=== PATIENT | female | born 1950 | race African-American/Black ===

== ENCOUNTER → 2016-07-27 | Outpatient (CLI) | payer OTHER ==
[~2016-07-27] MED LIST: ALBU8I INH; AMLO5 PO; CALC1TAB87 PO; CALCCHW25 PO; CEPH250C PO; CLAR10CA3 PO; FLON0.053; FLUT1INH INH; FLUT1SPR5 EACH NARE; GABA100C4 PO; LIPI10TA PO; METO25CR PO; METO25TA3 PO; MONT10TA4 PO; MYCO180 PO; MYCO360 PO; NEOR25 PO; OXYC-392 PO; PROBCAP4 PO; PROT40TA PO; RANI150T PO; VENTAER INH; WALKER WHEELS/F1 MIS
--- NOTE | 2016-07-27 16:28 | RADRPT ---
EXAM DATE/TIME: 07/27/2016 00:00 [facility] COMPARISON: No previous studies available for comparison. OUTSIDE STUDY REVIEWED: CT abdomen and pelvis without intravenous contrast performed on 07/18/2016. INDICATIONS : CT Guided Biopsy of Liver Nodules FINDINGS: The noncontrast abdomen and pelvis CT documents a portion of the liver protruding superiorly from the dome into a eventration or hernia of the diaphragm. No contrast was administered on the examination and it could represent normal liver tissue. The patient is post liver transplant. Based on the locati on is not easily amenable to biopsy and may be impossible to biopsy without traversing the lung. CONCLUSION: Since the above-described liver finding would be extremely difficult to biopsy without traversing the lung and given that the finding may represent normal liver parenchyma that has simply protruded into a eventration or hernia of the diaphragm, I am recommending performing a liver MRI with and without intravenous contrast for further evaluation. If it demonstrates an appearance consistent with normal liver tissue then no biopsy will be needed. If there is clinical concern for a metastatic lesion and the patient cannot undergo MRI with intravenous contrast for some reason then I would consider PET CT imaging. Roberto Gabriel MD on July 27, 2016 at 16:22 Board Certified Radiologist. This report was verified electronically.
== END ==
LOC: HRAD 14:18
PROVIDERS: ATTEND Obstetrics & Gynecology
DX: K76.89 Other specified diseases of liver (principal)
CPT/HCPCS: 76140

== ENCOUNTER 2016-08-16 11:17 | Inpatient (IN) | payer OTHER, MEDICARE ==
[~2016-08-16] VITALS: Ht 166.4 cm; Wt 116.5 kg
[2016-08-16] MEDS ORDERED: VENTAER INH (15:05)
[2016-08-16] MEDS ORDERED: NEOR25 PO (15:05)
[2016-08-16] MEDS ORDERED: AMLO5 PO (15:05)
[2016-08-16] MEDS ORDERED: CLAR10CA3 PO (15:05)
[2016-08-16] MEDS ORDERED: GABA100C4 PO (15:05)
[2016-08-16] MEDS ORDERED: FLUT1SPR5 EACH NARE (15:05)
[2016-08-16] MEDS ORDERED: CALC1TAB87 PO (15:05)
[2016-08-16] MEDS ORDERED: RANI150T PO (15:05)
[2016-08-16] MEDS ORDERED: LIPI10TA PO (15:05)
[2016-08-16] MEDS ORDERED: METO25TA3 PO (15:05)
[2016-08-16] MEDS ORDERED: MYCO180 PO (15:05)
[2016-08-16] MEDS ORDERED: MONT10TA4 PO (15:05)
[2016-08-16] MEDS ORDERED: FLUT1INH INH (15:05)
[2016-08-16] MEDS ORDERED: PROT40TA PO (15:05)
[2016-08-28] MEDS ORDERED: INSULIN HUMAN REGULAR 1,000 UNITS/10 ML VIAL SQ PRN (06:00)
[2016-08-28] MEDS ORDERED: POVIDONE IODINE 5% (ANTISEPSIS KIT) 4 APPLICATIONS EACH NARE PRN (06:00)
[2016-08-28] MEDS ORDERED: LACTATED RINGER'S 1000 ML IV PRN (06:00)
[2016-08-28] MEDS ORDERED: METOPROLOL TARTRATE 25 MG TAB PO PRN (06:00)
[2016-08-28] MEDS ORDERED: SODIUM CHLORID 0.9% 500 ML IV PRN (06:00)
[2016-08-28] MEDS ORDERED: ceFAZolin 2 GM PREMIX 50 ML IV SCH (06:00)
[2016-08-28] MEDS ORDERED: CHLORHEXIDINE GLUCONATE 2 % 1 PACK (2 CLOTHS) TOPICAL PRN (06:00)
[2016-08-28 06:12] VITALS: BP 134/91; PULSE 103; RESP 16; TEMP 98.8; O2SAT 96
[2016-08-28] MEDS: GELFOAM SIZE 100 ONE ×2 (06:37→07:57)
[2016-08-28] MEDS: THROMBIN (TOPICAL) 5,000 UNIT VIAL ONE ×2 (06:37→07:57)
[2016-08-28] MEDS ORDERED: FAMOTIDINE 20 MG/2 ML VIAL ONE (07:01)
[2016-08-28] MEDS ORDERED: ACETAMINOPHEN 1000 MG/100 ML VIAL IV ONE (07:01)
[2016-08-28] MEDS ORDERED: MIDAZOLAM HCL 2 MG/2 ML VIAL ONE (07:02)
[2016-08-28] MEDS ORDERED: fentaNYL CITRATE 250 MCG/5 ML AMP ONE (07:02)
[2016-08-28] MEDS ORDERED: HEPARIN SODIUM - SQ 10,000 UNITS/ML VIAL SQ SCH (07:30)
[2016-08-28] MEDS ORDERED: diphenhydrAMINE HCL 25 MG CAP PO PRN (10:45)
[2016-08-28] MEDS ORDERED: LORazepam 0.5 MG TAB PO PRN (10:45)
[2016-08-28] MEDS ORDERED: SODIUM CHLORIDE 0.9% FLUSH 10 ML FLUSH IV FLUSH PRN (10:45)
[2016-08-28] MEDS ORDERED: oxyCODONE/ACETAMINOPHEN 5 MG/325 MG TAB PO PRN ×2 (10:45)
[2016-08-28] MEDS ORDERED: NALOXONE HCL 0.4 MG/ML AMP IV PRN (10:45)
[2016-08-28] MEDS ORDERED: ONDANSETRON HCL 4 MG/2 ML VIAL IVP PRN (10:45)
[2016-08-28] MEDS ORDERED: PHENYLEPH/NS 1000 MCG/10 ML SYR IV ONE (10:54)
[2016-08-28] MEDS ORDERED: ONDANSETRON HCL 4 MG/2 ML VIAL IV PUSH ONE (10:54)
[2016-08-28] MEDS ORDERED: PROPOFOL 200 MG/20 ML AMP IV ONE (10:54)
[2016-08-28] MEDS ORDERED: NEOSTIGMINE 3 MG/3 ML SYR IV ONE (10:54)
[2016-08-28] MEDS ORDERED: LACTATED RINGER'S 1000 ML INJ 1,000 ML IV ONE (10:55)
[2016-08-28] MEDS ORDERED: *morphine SULFATE 8 MG/ML PERIprocedure ONLY ONE (11:22)
[2016-08-28] MEDS ORDERED: DO NOT ADM ANY ANTICOAGULANT DRUGS PRN (11:45)
[2016-08-28] MEDS ORDERED: *MEPERIDINE 25 MG INJ VIAL PERIprocedural Use ONLY ONE (11:48)
[2016-08-28] MEDS: D5-1/2 NS + KCL 20 MEQ INJ 1,000 ML IV SCH ×2 (11:50→19:02)
[2016-08-28] MEDS: MORPHINE SULFATE 30 MG/30 ML PCA IV SCH (11:52)
--- NOTE | 2016-08-28 15:45 | PD.ONC.PN ---
Subjective Subjective Remarks post op note pt sleeping in bed awakens to voice using PARTS REMOVER rivera draining denies any N/V Objective Data Date Time Temp Pulse Resp B/P Pulse Ox O2 Delivery O2 Flow Rate FiO2 08/28/16 13:00 97.8 85 16 129/78 96 Nasal Cannula 2 08/28/16 12:45 84 16 130/79 96 Nasal Cannula 2 08/28/16 12:30 85 16 127/78 95 Nasal Cannula 2 08/28/16 12:15 83 15 129/82 100 Nasal Cannula 3 08/28/16 12:00 82 15 140/85 99 Nasal Cannula 3 08/28/16 11:57 15 08/28/16 11:52 15 08/28/16 11:45 81 15 127/78 98 Nasal Cannula 3 08/28/16 11:30 80 15 136/83 97 Nasal Cannula 3 08/28/16 11:27 15 08/28/16 11:15 73 15 137/86 100 Simple Mask 8 08/28/16 11:00 98.3 75 16 138/85 99 Simple Mask 8 08/28/16 06:12 98.8 103 16 134/91 96 08/28/16 08/28/16 08/28/16 07:00 15:00 23:00 Intake Total 1700 ml Output Total 1450 ml Balance 250 ml Laboratory Results Laboratory Tests Test 08/28/16 08/28/16 06:22 06:25 Blood Type O POSITIVE O POSITIVE Antibody Screen NEGATIVE Crossmatch Leukocyte-Reduced Red Blood Cells Blood Bank Comment Administered Medications Medications (Trade) Dose Ordered Sig/Catie Route PRN Reason Start Time Stop Time Status Last Admin Dose Admin Potassium Chloride/Dextrose/ Sod Cl (D5-1/2 NS + KCl 20 Meq Inj) 1,000 ml @ 100 mls/hr Q10H IV 08/28/16 11:00 08/28/16 11:50 Morphine Sulfate (Morphine 1 Mg/ ml PARTS REMOVER) 30 mg UNSCH IV 08/28/16 10:45 08/28/16 11:52 Objective Remarks GENERAL: Well-nourished, well-developed patient. SKIN: Warm and dry. HEAD: Normocephalic. EYES: No scleral icterus. No injection or drainage. CARDIOVASCULAR: Regular rate and rhythm without murmurs. RESPIRATORY: Breath sounds equal bilaterally. No accessory muscle use. GASTROINTESTINAL: Abdomen with abdominal binder EXTREMITIES: teds and scds MUSCULOSKELETAL: Adequate muscle tone. NEUROLOGICAL: sleeping awakens to voice PSYCHIATRIC: Appropriate mood and affect; insight and judgment normal. Assessment/Plan Problem List: (1) Post-operative state Status: Acute Plan: s/p X lap hysterectomy with BSO and lymphadenectomy post op orders in chart Rivera D/C on POD #2 PARTS REMOVER for pain IS to bedside clear liquid diet...ADAT OOB to chair tomorrow X 3 CBC with no diff and PLTS and BMP....stat now results called to Dr. Nagy (2) Endometrial cancer Status: Acute Plan: final pathology is pending any additional treatment recommendations will be based on final path Ginger Rothman Aug 28, 2016 15:45
[2016-08-28] MEDS: PCA - TOTAL MG MORPHINE DELIVERED PER SHIFT SCH ×2 (15:54→22:00)
[2016-08-28 16:00] VITALS: BP 114/76; PULSE 88; RESP 18; TEMP 97.2; O2SAT 100
[2016-08-28 16:53] LABS: HEMATOCRIT 35.2 % (35.0-46.0); MEAN CELL VOLUME 86.7 FL (80.0-100.0); MEAN CORPUSCULAR HGB CONC 33.5 % (32.0-36.0); PLATELET COUNT 226 TH/MM3 (150-450); RED BLOOD COUNT 4.06 MIL/MM3 (4.00-5.30); RED CELL DISTRIBUTION WIDTH 14.1 % (11.6-17.2); REVIEW FLAG FINAL; WHITE BLOOD COUNT 12.7 TH/MM3 (4.0-11.0)
[2016-08-28 17:12] LABS: BICARBONATE 28.8 MEQ/L (21.0-32.0); POTASSIUM 4.7 MEQ/L (3.5-5.1)
[2016-08-28] MEDS: RESP: ALBUTEROL 2.5 MG/3 ML NEB (SCH) NEB (19:29)
[2016-08-28 19:31] VITALS: O2SAT 98
[2016-08-28 20:00] VITALS: BP 121/77; PULSE 88; RESP 20; TEMP 97.5; O2SAT 99
[2016-08-28] MEDS: SODIUM CHLORIDE 0.9% FLUSH 10 ML FLUSH IV FLUSH SCH (21:00)
[2016-08-28] MEDS ORDERED: MYCOPHENOLIC ACID (AS MYCOPHENOLATE SODIUM) 180 MG DR TAB PO SCH (21:00)
[2016-08-28] MEDS: METOPROLOL TARTRATE 25 MG TAB PO SCH (21:50)
[2016-08-28] MEDS: FAMOTIDINE 20 MG TAB PO SCH (21:50)
[2016-08-28] MEDS: GABAPENTIN 100 MG CAP PO SCH (21:50)
[2016-08-28] MEDS: MONTELUKAST SODIUM 10 MG TAB PO SCH (21:50)
[2016-08-29] VITALS (8 sets, daily range): BP systolic 109–135; BP diastolic 68–82; PULSE 88–112; RESP 16–20; TEMP 98.8–100.7; O2SAT 90–100
[2016-08-29] MEDS: RESP: ALBUTEROL 2.5 MG/3 ML NEB (SCH) NEB ×4 (03:49→21:15)
[2016-08-29] MEDS: MORPHINE SULFATE 30 MG/30 ML PCA IV SCH (04:13)
[2016-08-29] MEDS: D5-1/2 NS + KCL 20 MEQ INJ 1,000 ML IV SCH ×3 (04:58→23:51)
[2016-08-29] MEDS: PCA - TOTAL MG MORPHINE DELIVERED PER SHIFT SCH ×3 (06:00→21:57)
[2016-08-29 07:04] LABS: AUTOMATED NEUTROPHIL # 8.6 TH/MM3 (1.8-7.7); BASOPHIL % 0.1 % (0.0-2.0); EOSINOPHIL # 0.1 TH/MM3 (0-0.4); EOSINOPHIL % 0.5 % (0.0-4.0); HEMATOCRIT 33.5 % (35.0-46.0); HEMO FLAGS DIFF FINAL; LYMPH % 13.6 % (9.0-44.0); LYMPHOCYTE # 1.6 TH/MM3 (1.0-4.8); MEAN CELL VOLUME 87.6 FL (80.0-100.0); MEAN CORPUSCULAR HEMOGLOBIN 28.3 PG (27.0-34.0); MEAN CORPUSCULAR HGB CONC 32.3 % (32.0-36.0); MONO % 11.3 % (0.0-8.0); NEUT % 74.5 % (16.0-70.0); PLATELET COUNT 202 TH/MM3 (150-450); RED BLOOD COUNT 3.83 MIL/MM3 (4.00-5.30); RED CELL DISTRIBUTION WIDTH 14.2 % (11.6-17.2); WHITE BLOOD COUNT 11.5 TH/MM3 (4.0-11.0)
[2016-08-29 07:15] LABS: BICARBONATE 25.7 MEQ/L (21.0-32.0); POTASSIUM 4.6 MEQ/L (3.5-5.1)
--- NOTE | 2016-08-29 07:30 | PD.ONC.PN ---
Subjective Subjective Remarks POD #1 pt resting in bed painful using ESCROW SECRETARY stating that she has pain in her throat, I explained it was most likely from the intubation tube, I tried to reassure her that there was no complications with her intubation. she would like to get up OOB today, I discussed with her nurse and she will get OOB to chair today. encouraged use of IS and reeducated. Objective Data Date Time Temp Pulse Resp B/P Pulse Ox O2 Delivery O2 Flow Rate FiO2 08/29/16 06:00 16 08/29/16 04:25 16 08/29/16 04:13 16 08/29/16 04:00 99.0 88 20 131/78 98 08/29/16 00:00 99.1 91 20 124/78 100 08/28/16 22:00 16 08/28/16 20:00 97.5 88 20 121/77 99 08/28/16 19:31 98 Nasal Cannula 2.00 08/28/16 16:00 97.2 88 18 114/76 100 08/28/16 15:54 16 08/28/16 13:00 97.8 85 16 129/78 96 Nasal Cannula 2 08/28/16 12:45 84 16 130/79 96 Nasal Cannula 2 08/28/16 12:30 85 16 127/78 95 Nasal Cannula 2 08/28/16 12:15 83 15 129/82 100 Nasal Cannula 3 08/28/16 12:00 82 15 140/85 99 Nasal Cannula 3 08/28/16 11:52 15 08/28/16 11:45 81 15 127/78 98 Nasal Cannula 3 08/28/16 11:30 80 15 136/83 97 Nasal Cannula 3 08/28/16 11:27 15 08/28/16 11:15 73 15 137/86 100 Simple Mask 8 08/28/16 11:00 98.3 75 16 138/85 99 Simple Mask 8 08/29/16 08/29/16 08/29/16 07:00 15:00 23:00 Intake Total 300 ml Output Total 300 ml Balance 0 ml Result Diagram: 08/29/16 0558 08/29/16 0558 Laboratory Results Laboratory Tests Test 08/28/16 08/29/16 16:14 05:58 White Blood Count 12.7 TH/MM3 11.5 TH/MM3 Red Blood Count 4.06 MIL/MM3 3.83 MIL/MM3 Hemoglobin 11.8 GM/DL 10.8 GM/DL Hematocrit 35.2 % 33.5 % Mean Corpuscular Volume 86.7 FL 87.6 FL Mean Corpuscular Hemoglobin 29.0 PG 28.3 PG Mean Corpuscular Hemoglobin 33.5 % 32.3 % Concent Red Cell Distribution Width 14.1 % 14.2 % Platelet Count 226 TH/MM3 202 TH/MM3 Mean Platelet Volume 9.0 FL 9.0 FL Sodium Level 138 MEQ/L 135 MEQ/L Potassium Level 4.7 MEQ/L 4.6 MEQ/L Chloride Level 103 MEQ/L 103 MEQ/L Carbon Dioxide Level 28.8 MEQ/L 25.7 MEQ/L Anion Gap 6 MEQ/L 6 MEQ/L Blood Urea Nitrogen 12 MG/DL 11 MG/DL Creatinine 1.54 MG/DL 1.33 MG/DL Estimat Glomerular Filtration 41 ML/MIN 48 ML/MIN Rate Random Glucose 172 MG/DL 140 MG/DL Calcium Level 8.4 MG/DL 8.1 MG/DL Magnesium Level 1.7 MG/DL Neutrophils (%) (Auto) 74.5 % Lymphocytes (%) (Auto) 13.6 % Monocytes (%) (Auto) 11.3 % Eosinophils (%) (Auto) 0.5 % Basophils (%) (Auto) 0.1 % Neutrophils # (Auto) 8.6 TH/MM3 Lymphocytes # (Auto) 1.6 TH/MM3 Monocytes # (Auto) 1.3 TH/MM3 Eosinophils # (Auto) 0.1 TH/MM3 Basophils # (Auto) 0.0 TH/MM3 CBC Comment DIFF FINAL Differential Comment Administered Medications Medications (Trade) Dose Ordered Sig/Catie Route PRN Reason Start Time Stop Time Status Last Admin Dose Admin Cyclosporine (Neoral) 50 mg BID PO 08/28/16 21:00 08/28/16 21:50 Gabapentin (Neurontin) 100 mg BID PO 08/28/16 21:00 08/28/16 21:50 Metoprolol Tartrate (Lopressor) 25 mg BID PO 08/28/16 21:00 08/28/16 21:50 Mycophenolate Sodium (Myfortic Dr) 360 mg BID PO 08/28/16 21:00 08/28/16 21:50 Famotidine 20 mg 20 mg HS PO HRT 6/6/17 21:00 08/28/16 21:50 Potassium Chloride/Dextrose/ Sod Cl (D5-1/2 NS + KCl 20 Meq Inj) 1,000 ml @ 100 mls/hr Q10H IV 08/28/16 11:00 08/29/16 04:58 Morphine Sulfate (Morphine 1 Mg/ ml ESCROW SECRETARY) 30 mg UNSCH IV 08/28/16 10:45 08/29/16 04:13 ESCROW SECRETARY Dosage Infused (Pha) 1 Q8HR .XX 08/28/16 14:00 08/29/16 06:00 Objective Remarks GENERAL: Well-nourished, well-developed patient. SKIN: Warm and dry. HEAD: Normocephalic. EYES: No scleral icterus. No injection or drainage. NECK: Supple, trachea midline. CARDIOVASCULAR: Regular rate and rhythm without murmurs. RESPIRATORY: Breath sounds equal bilaterally. No accessory muscle use. GASTROINTESTINAL: Abdomen soft, with abdominal binder EXTREMITIES: teds and scds MUSCULOSKELETAL: Adequate muscle tone. NEUROLOGICAL: No obvious focal deficit., sleeping awakens to voice PSYCHIATRIC: Appropriate mood and affect; insight and judgment normal. Assessment/Plan Problem List: (1) Post-operative state Status: Acute Plan: POD #1 s/p X lap hysterectomy with BSO and lymphadenectomy post op orders in chart Qureshi D/C on POD #2 ESCROW SECRETARY for pain IS to bedside and reeducated clear liquid diet...ADAT OOB to ambulate today with assistance and to chair anticipate D/C home in the next 24-48 hours (2) Endometrial cancer Status: Acute Plan: final pathology is pending any additional treatment recommendations will be based on final path Ginger Rothman Aug 29, 2016 07:30
[2016-08-29] MEDS ORDERED: BENZOCAINE 6 MG/MENTHOL 10 MG LOZENGE BUCCAL PRN (08:00)
[2016-08-29] MEDS: amLODIPine BESYLATE 5 MG TAB PO SCH (08:27)
[2016-08-29] MEDS: CEPHALEXIN MONOHYDRATE 250 MG CAP PO SCH (08:27)
[2016-08-29] MEDS: GABAPENTIN 100 MG CAP PO SCH ×2 (08:27→20:52)
[2016-08-29] MEDS: LORATADINE 10 MG TAB PO SCH (08:27)
[2016-08-29] MEDS: PANTOPRAZOLE SOD 40 MG DELAYED RELEASE TAB PO SCH (08:27)
[2016-08-29] MEDS: SODIUM CHLORIDE 0.9% FLUSH 10 ML FLUSH IV FLUSH SCH ×2 (08:28→21:00)
[2016-08-29] MEDS: METOPROLOL TARTRATE 25 MG TAB PO SCH ×2 (08:28→20:52)
--- NOTE | 2016-08-29 08:44 | MP ---
cc: AUSTIN REYNA M.D., KELLY L. MD DASILVA, CHRISTINE C. M.D. DATE OF SURGERY 08/28/2016 PREOPERATIVE DIAGNOSIS 1. High-grade endometrial cancer 2. Multiple leiomyomas 3. Extensive prior surgical history POSTOPERATIVE DIAGNOSIS 1. High-grade endometrial cancer 2. Multiple leiomyomas 3. Extensive prior surgical history 4. Pelvic adhesions PROCEDURE Exploratory laparotomy, total abdominal hysterectomy, bilateral salpingo-oophorectomy, lysis of adhesions. SURGEON Lily Nagy MD LATCHER [employer] election assistant ANESTHESIA General endotracheal anesthesia ESTIMATED BLOOD LOSS 800 cc IV FLUIDS 200 cc URINE OUTPUT 300 cc HISTORY This is a 66-year-old female with postmenopausal bleeding. On exam and imaging, he had a prominent uterus, multiple calcified leiomyomas, endometrial mass, biopsy showed a high-grade carcinoma with necrosis, no overt evidence of metastatic disease. She has an extensive surgical and medical history. Prior history of hepatitis C with cirrhosis, liver cancer, she has apparently had the hepatitis C cleared with medical treatment. She is status post liver transplant on immunosuppression medication and has been doing well with no evidence of recurrent disease or rejection. She has been seen and counseled extensively. She is in favor of surgical management. She is not thought to be a good candidate for laparoscopic surgery. She is seen again in the preop holding area where findings are reviewed. Questions were answered. She expresses good understanding and would like to move forward with exploratory laparotomy. FINDINGS On exploration, there are adhesions to the anterior abdominal wall of the omentum, some loops of small bowel which were taken down sharply. What was thought to be an umbilical hernia on exam was not appreciated clinically. There was no possibly of a small diastasis there, but there was no omentum or loop of bowel within the umbilicus. The uterus itself was quite prominent, multilobulated with what appeared to be leiomyomas. The lower uterine segment and cervix was quite dilated. The initial concern was that there may be tumor infiltrating down through the cervix or it maybe cervical leiomyoma. There is no appreciably enlarged pelvic or para-aortic lymph nodes. There is no peritoneal implants. There is extensive adhesions above the umbilicus that precludes adequate exploration of the anatomy above the umbilicus. The preliminary pathology of the uterus shows the tumor to be approximately 6.5 cm, mostly exophytic into the endometrial cavity. Depth of invasion is approximately 1 cm out of a 3.5 cm myometrium (less than 50% depth of invasion) and there is no cervical extension of the tumor suggesting that the prominence in the lower uterine segment and cervix is likely due to leiomyomas, adenomyosis or both. Also findings are fairly prominent vasculature likely related to collaterals due to her prior liver transplantation. There was more than usual blood loss, hypervascular structures during hysterectomy. STATEMENT OF COMPLEXITY The complexity of this case was increased due to the enlarged uterus with lower uterine segment cervical mass. Her body habitus weight of 117 kg and prior extensive surgery all of which increased the complexity and challenges in duration of this case. Modifier should be applied accordingly. PROCEDURE The patient taken to the operating room placed in the dorsal lithotomy position after general endotracheal anesthesia was administered. Time-out was undertaken. The patient was identified by sight recognition and hospital ID bracelet and the proposed procedure was reviewed and confirmed. She was prepped and draped in a sterile fashion. Qureshi catheter placed in the bladder. Ioban drape placed over the abdominal wall. A midline vertical incision made from the umbilicus to the symphysis, carried down to the level of the fascia. The fascia was entered. The rectus muscles were in the midline. The peritoneal cavity was entered sharply. Visual and palpable inspection of the adhesions was undertaken and sharp dissection was used to take down the adhesions and the peritoneal incision was extended the length of the skin incision. Additional lysis of adhesion was carried out to gain access to the pelvis. Bookwalter retractor was assembled. Lap pads were used to retract bowel and to assist in surgical exposure and the uterus was lifted as the fibroid portion of uterus was wedged in the posterior cul-de-sac. It was elevated and the angles of the uterus were grasped and elevated with tissue clamps. The right round ligament doubly suture ligated and transected. The anterior and posterior leafs of the broad ligament were opened. The right ureter was identified. The right infundibulopelvic ligament was isolated. The intervening peritoneum was opened. The infundibulopelvic ligament was doubly clamped, cut and suture ligated. Initiation of dissection of the bladder flap as the vesicouterine peritoneum was dissected off the right side of the lower uterine segment and cervix and the posterior peritoneum opened along the cervix and the uterine vessels were skeletonized. Attention was directed toward the contralateral side where the round ligament was doubly suture ligated and transected. The anterior and posterior leafs of the broad ligament were opened. The left ureter was identified. The left infundibulopelvic ligament was isolated. The intervening peritoneum was opened. The infundibulopelvic ligament was dissected to the level of the pelvic brim where it was doubly clamped, cut and suture ligated. Posterior peritoneum opened on the left side and the left vesicouterine peritoneum was dissected off the lower uterine segment and cervix and the left uterine vessels were skeletonized. Dissection was difficult due to the pronounced dilation of the lower uterine segment and cervix. The vessels were first secured on the right side where they were doubly clamped, cut and suture-ligated. Some back bleeding noted and then the Cardinal ligament was clamped, cut and suture-ligated. Attention was directed to the contralateral vessels which were clamped, cut and suture-ligated as were the Cardinal ligaments clamped, cut and suture-ligated with fairly consistent bleeding during dissection. Dissection was continued along the lateral edge of the cervix as the remaining paracervical and uterosacral ligaments were clamped, cut and suture-ligated until visual and palpable inspection confirmed that dissection was below the level of the cervix identified by palpation and the attachment of the uterosacral ligaments. Lap pads were placed in the posterior cul-de-sac and lateral to help with hemostasis. Curved Godoy clamps were placed below the cervix at the lateral vaginal angles. Sharp dissection was used to cut across the top of the vagina. The specimen was inspected. The entire cervix was removed and was sent for frozen section analysis. The vaginal cuff was closed with interrupted [id number] 0 Vicryl sutures and the pelvic packing was continued. A second suction apparatus was set up to facilitate visualization and acquisition of hemostasis. The lap pads were retracted in a stepwise fashion with suction to identify areas of bleeders. There was extension of the cuff posteriorly on the left which was bleeding. This was rendered hemostatic with [id number] 0 Vicryl sutures. Another bleeder was located in the central vaginal cuff where there appeared to be an additional extension. The bladder flap was dissected further off the anterior vaginal wall and this was rendered hemostatic with [id number] 0 Vicryl sutures. The lap pads were gradually removed. A small amount of bleeding was noted overlying the bladder mucosa on the left side, oversewn with 3-0 Vicryl sutures and focal bipolar cautery at the lateral edge of the cuff. The pelvis was thoroughly irrigated. All sites inspected now noted to be hemostatic and to assist in continued hemostasis some Kingsley powder was placed across the vaginal cuff and the vesicouterine dissection plane and in the cul-de-sac and Surgicel was placed across these areas of the cuff and the lateral pelvic sidewall. Visual and manual palpable inspection revealed no overt adenopathy. Given our preoperative discussion, her morbidity, the bleeding that was encountered and challenges during this case, and no overt evidence of metastatic disease on imaging or direct surgical assessment, it was felt that the morbidity of lymph node dissection may exceed benefit in this individual. Accordingly, it was felt that all reasonable surgical objectives had been completed. The Bookwalter retractor was disassembled. The lap pads were removed. Visual and manual inspection confirmed all sites were satisfactorily hemostatic. There were no remaining foreign objects in the peritoneal cavity. Preliminary counts were correct and attention was directed toward closing. The abdominal wall was closed with 0 looped PDS starting at apices of the incisions running with continuous modified Smead-Guevara meeting in the midpoint where the sutures were tied. The subcutaneous tissue was irrigated. Claudy's fascia reapproximated with 2-0 Vicryl sutures and the skin edges closed with a 3-0 Monocryl subcuticular. She was returned to dorsal supine position. Preliminary and final counts were correct and she was pending reversal of anesthesia when I left the operating room to precede her to the Post Anesthesia Care Unit. MD SHIV Day/ALISON /6:39 AM /8:24 AM
[2016-08-29] MEDS: MYCOPHENOLATE SODIUM 360 MG DELAYED RELEASE TAB PO SCH ×2 (13:11→20:51)
[2016-08-29] MEDS: FAMOTIDINE 20 MG TAB PO SCH (20:51)
[2016-08-29] MEDS: MONTELUKAST SODIUM 10 MG TAB PO SCH (20:52)
[2016-08-30] VITALS (7 sets, daily range): BP systolic 97–146; BP diastolic 56–71; PULSE 96–114; RESP 16–20; TEMP 99–100.7; O2SAT 94–97
[2016-08-30] MEDS: RESP: ALBUTEROL 2.5 MG/3 ML NEB (SCH) NEB ×5 (03:33→22:45)
[2016-08-30] MEDS: MYCOPHENOLATE SODIUM 360 MG DELAYED RELEASE TAB PO SCH ×2 (05:15→18:34)
[2016-08-30] MEDS: PCA - TOTAL MG MORPHINE DELIVERED PER SHIFT SCH ×3 (05:19→21:21)
[2016-08-30] MEDS: MORPHINE SULFATE 30 MG/30 ML PCA IV SCH (08:00)
[2016-08-30] MEDS: LORATADINE 10 MG TAB PO SCH (08:01)
[2016-08-30] MEDS: METOPROLOL TARTRATE 25 MG TAB PO SCH ×2 (08:01→22:57)
[2016-08-30] MEDS: GABAPENTIN 100 MG CAP PO SCH ×2 (08:01→22:58)
[2016-08-30] MEDS: CEPHALEXIN MONOHYDRATE 250 MG CAP PO SCH (08:01)
[2016-08-30] MEDS: PANTOPRAZOLE SOD 40 MG DELAYED RELEASE TAB PO SCH (08:01)
[2016-08-30] MEDS: SODIUM CHLORIDE 0.9% FLUSH 10 ML FLUSH IV FLUSH SCH ×2 (08:02→21:00)
[2016-08-30] MEDS: D5-1/2 NS + KCL 20 MEQ INJ 1,000 ML IV SCH ×2 (10:11→20:50)
[2016-08-30] MEDS: amLODIPine BESYLATE 5 MG TAB PO SCH (12:40)
[2016-08-30] MEDS: FAMOTIDINE 20 MG TAB PO SCH (22:57)
[2016-08-30] MEDS: MONTELUKAST SODIUM 10 MG TAB PO SCH (22:58)
[2016-08-31] VITALS: BP 108/56; PULSE 96; RESP 20; TEMP 97.2; O2SAT 97
[2016-08-31] MEDS: RESP: ALBUTEROL 2.5 MG/3 ML NEB (SCH) NEB ×2 (03:39→07:46)
[2016-08-31 04:00] VITALS: BP 107/77; PULSE 100; RESP 20; TEMP 96.5; O2SAT 96
[2016-08-31] MEDS: PCA - TOTAL MG MORPHINE DELIVERED PER SHIFT SCH (04:27)
[2016-08-31] MEDS: MYCOPHENOLATE SODIUM 360 MG DELAYED RELEASE TAB PO SCH (04:33)
[2016-08-31] MEDS ORDERED: OXYC-392 PO (07:36)
[2016-08-31] MEDS ORDERED: CEPH250C PO (07:39)
[2016-08-31 07:46] VITALS: O2SAT 98
[2016-08-31] MEDS: SODIUM CHLORIDE 0.9% FLUSH 10 ML FLUSH IV FLUSH SCH (07:51)
[2016-08-31] MEDS: D5-1/2 NS + KCL 20 MEQ INJ 1,000 ML IV SCH (07:51)
[2016-08-31 08:31] VITALS: BP 94/68; PULSE 102; RESP 16; TEMP 97.9; O2SAT 99
[2016-08-31] MEDS: amLODIPine BESYLATE 5 MG TAB PO SCH (09:00)
[2016-08-31] MEDS: GABAPENTIN 100 MG CAP PO SCH (10:09)
[2016-08-31] MEDS: CEPHALEXIN MONOHYDRATE 250 MG CAP PO SCH (10:14)
[2016-08-31] MEDS: LORATADINE 10 MG TAB PO SCH (10:14)
[2016-08-31] MEDS: PANTOPRAZOLE SOD 40 MG DELAYED RELEASE TAB PO SCH (10:14)
[2016-08-31] MEDS: METOPROLOL TARTRATE 25 MG TAB PO SCH (10:14)
[2016-08-31 10:17] VITALS: BP 118/76; PULSE 106
[2016-08-31 12:00] VITALS: BP 116/83; PULSE 90; RESP 16; TEMP 98.5; O2SAT 98
[2016-08-31] MEDS ORDERED: WALKER WHEELS/F1 MIS (14:41)
--- NOTE | 2016-08-31 15:27 | HHI.FF ---
Face to Face Verification Diagnosis: (1) Endometrial cancer (2) Post-operative state Physical Therapy Order: Evaluate and Treat, Strength and gait training Occupational Therapy Order: Evaluate and Treat, Gross motor coordination Home Health Nursing Order: Wound care and dressing changes Qureshi catheter maintenance Instructions: can leave open to air, monitor for infection Home Health Aide Order: To Assist In: Bathing and personal care I have seen patient Keira Rich on 08/31/16. My clinical findings support the need for the requested home health care services because: Deconditioned w/ increased weakness High risk of falls I certify that my clinical findings support that this patient is homebound because: Post-op weakness Ginger Rothman [facility] Aug 31, 2016 15:27
--- NOTE | 2016-09-04 18:58 | MD ---
cc: AUSTIN REYNA M.D., KELLY L. MD DASILVA,SLOANE VALLES M.D. ADMISSION DATE: 08/28/2016 DISCHARGE DATE: 08/31/2016 PROCEDURE 08/28/2016 exploratory laparotomy, total abdominal hysterectomy, bilateral salpingo-oophorectomy for lysis of adhesions and diagnosis of endometrial cancer. HOSPITAL COURSE She did well during hospital recovery. She had a low grade temperature early on thought related to atelectasis which resolved with ambulation and spirometry. Oral intake was good, tolerating liquid and solid intake. A Qureshi catheter is in place and will remain in place for a short period of time without problems. She has had some return of flatus. No nausea, vomiting, chest pain or other concerning symptoms. OBJECTIVE Her postop labs H&H were 10.8 and 33.5. Electrolytes essentially normal. Baseline creatinine is elevated but it showed some improvement on follow-up check, her creatinine 1.33. In and outs remained good, the last 24 hours 1960 / 3000. PHYSICAL EXAMINATION VITAL SIGNS: Afebrile, pulse 96-100, respirations 16-20, blood pressure 107-108 over 56-77, O2 saturations 96% while awake, GENERAL: Alert and oriented x3 in no acute distress. LUNGS: Clear. Mild rales at the bases. CARDIOVASCULAR: Regular rate and rhythm. SKIN: Midline vertical incision clean and dry. Steri-Strips intact. GYNECOLOGIC: No bleeding. EXTREMITIES: Nontender. ASSESSMENT Postoperative day #3 doing well in postoperative recovery. She spent the majority of time out of bed and or walking yesterday or at least many hours. The findings at the time of surgery preliminary pathology reviewed, rationale for indwelling Qureshi catheter due to dissection near the bladder explained including the need for once daily antibiotic while indwelling Qureshi catheter. Activities restrictions discussed. Questions were answered. She expressed good understanding and agreed. PLAN Therefore anticipate discharge to home. She is to resume prior medications. She will have a prescription for oxycodone as well as for Keflex. She is to resume her prior medications and she is to contact my office to follow up in approximately 7-10 days and our office number is made available should she have any questions or problems between now and the time of scheduled followup. Lily MD MIGDALIA Nagy /7:43 AM /6:36 PM
== END 2016-08-31 15:32 | disposition home health service (06) | DRG 740 ==
LOC: HSDI 08-28 05:28 → HOCA 08-28 13:11
PROVIDERS: ADMIT Obstetrics & Gynecology Gynecologic Oncology; ATTEND Obstetrics & Gynecology Gynecologic Oncology
PROC: 0UTC0ZZ Resection of Cervix, Open Approach (ICD-10-PCS; 2016-08-28)
PROC: 0UT70ZZ Resection of Bilateral Fallopian Tubes, Open Approach (ICD-10-PCS; 2016-08-28)
PROC: 0UT20ZZ Resection of Bilateral Ovaries, Open Approach (ICD-10-PCS; 2016-08-28)
PROC: 07BC0ZX Excision of Pelvis Lymphatic, Open Approach, Diagnostic (ICD-10-PCS; 2016-08-28)
PROC: 0WJJ0ZZ Inspection of Pelvic Cavity, Open Approach (ICD-10-PCS; 2016-08-28)
PROC: 0UT90ZZ Resection of Uterus, Open Approach (ICD-10-PCS; principal; 2016-08-28 07:10)
DX: C54.1 Malignant neoplasm of endometrium (principal); Z94.4 Liver transplant status; N95.0 Postmenopausal bleeding; D25.1 Intramural leiomyoma of uterus; D25.2 Subserosal leiomyoma of uterus; N85.2 Hypertrophy of uterus; K66.0 Peritoneal adhesions (postprocedural) (postinfection); Z85.05 Personal history of malignant neoplasm of liver
CPT/HCPCS: 80048; 83735; 85025; 85027; 86850; 86900; 86901; 86920; 88307; 88309; 88331; 94150; 94640; 94664; J0131; J0690; J1644; J2175; J2250; J2270; J2370; J2405; J2710; J3010; J3480; J7120; J7515; J7518; J7613

== ENCOUNTER → 2016-08-16 | Outpatient (CLI) | payer OTHER ==
[2016-08-16 12:06] LABS: AUTOMATED NEUTROPHIL # 6.6 TH/MM3 (1.8-7.7); BASOPHIL # 0.1 TH/MM3 (0-0.2); BASOPHIL % 0.5 % (0.0-2.0); EOSINOPHIL # 0.2 TH/MM3 (0-0.4); EOSINOPHIL % 2.3 % (0.0-4.0); HEMATOCRIT 41.8 % (35.0-46.0); HEMO FLAGS DIFF FINAL; LYMPH % 21.9 % (9.0-44.0); LYMPHOCYTE # 2.2 TH/MM3 (1.0-4.8); MEAN CELL VOLUME 87.4 FL (80.0-100.0); MEAN CORPUSCULAR HEMOGLOBIN 28.5 PG (27.0-34.0); MEAN CORPUSCULAR HGB CONC 32.6 % (32.0-36.0); MONO % 9.7 % (0.0-8.0); NEUT % 65.6 % (16.0-70.0); PLATELET COUNT 241 TH/MM3 (150-450); RED BLOOD COUNT 4.78 MIL/MM3 (4.00-5.30); RED CELL DISTRIBUTION WIDTH 14.2 % (11.6-17.2); WHITE BLOOD COUNT 10.1 TH/MM3 (4.0-11.0)
[2016-08-16 12:17] LABS: APTT (PATIENT) 25.3 SEC (24.3-30.1); INTERNATIONAL NORMALIZED RATIO 1.1 RATIO; PROTHROMBIN TIME - PATIENT 11.8 SEC (9.8-11.6)
[2016-08-16 12:28] LABS: ALT (GPT) 21 U/L (10-53); ANION GAP 9 MEQ/L (5-15); AST (GOT) 12 U/L (15-37); BICARBONATE 24.5 MEQ/L (21.0-32.0); BLOOD UREA NITROGEN 20 MG/DL (7-18); CHLORIDE 109 MEQ/L (98-107); GLOMERULAR FILTRATION RATE 38 ML/MIN (>89); GLUCOSE,FASTING 108 MG/DL (74-99); SODIUM (NA) 142 MEQ/L (136-145)
[2016-08-16 12:29] LABS: ALKALINE PHOSPHATASE 98 U/L (45-117); TOTAL BILIRUBIN ADULT 0.7 MG/DL (0.2-1.0)
--- NOTE | 2016-08-16 15:21 | RADRPT ---
EXAM DATE/TIME: 08/16/2016 12:24 [facility] COMPARISON: No previous studies available for comparison. INDICATIONS : Evaluate for pneumonia. pneumothorax, or communicable disease. Pre op for hysterectomy. MEDICAL HISTORY : Hypertension. SURGICAL HISTORY : None. ENCOUNTER: Initial ACUITY: 1 day PAIN SCORE: 0/10 LOCATION: Bilateral chest FINDINGS: Frontal and lateral views of the chest demonstrate a normal-sized cardiac silhouette. There is elevat ion the right hemidiaphragm with focal eventration similar to the prior CT. There is atelectasis at t he right lung base. No effusion, consolidation, or pneumothorax is identified. Bones and soft tissues demonstrate no acute finding. Multiple clips overlie the right upper quadrant. CONCLUSION: Eventration of the right hemidiaphragm with atelectasis at the right base. Otherwise, no acute findin g is identified. Roberto Gabriel MD on August 16, 2016 at 15:12 Board Certified Radiologist. This report was verified electronically.
--- NOTE | 2016-08-17 14:18 | EKG ---
Date Performed: 08/16/2016 Time Performed: 11:44:40 PTAGE: 66 years EKG: Sinus rhythm NORMAL ECG NO PREVIOUS TRACING DOCTOR: Stephan Pineda Interpretating Date/Time 08/17/2016 14:17:28
== END ==
LOC: CPRE 11:12
PROVIDERS: ATTEND Obstetrics & Gynecology Gynecologic Oncology
DX: Z01.810 Encounter for preprocedural cardiovascular examination (principal); Z01.811 Encounter for preprocedural respiratory examination; Z01.812 Encounter for preprocedural laboratory examination; C54.1 Malignant neoplasm of endometrium
CPT/HCPCS: 36415; 71020; 80053; 85025; 85610; 85730; 93005

== ENCOUNTER 2016-10-06 21:25 | Emergency (ER) | payer OTHER, MEDICARE ==
[~2016-10-06 21:25] MED LIST changes: -ALBU8I INH; -CALCCHW25 PO; -FLON0.053; -FLUT1INH INH; -METO25CR PO; -MYCO360 PO; -PROBCAP4 PO
[2016-10-06 21:27] VITALS: BP 138/90; PULSE 105; RESP 16; TEMP 98.7; O2SAT 99
[2016-10-07] MEDS ORDERED: BACT800T5 PO (00:23)
[2016-10-07] MEDS ORDERED: CEPH-460 PO (00:23)
--- NOTE | 2016-10-07 00:23 | PD ---
HPI Chief Complaint: Skin Problem Time Seen by Provider: 00:13 Travel History International Travel<30 days: No Contact w/Intl Traveler<30days: No Traveled to known affect area: No History of Present Illness HPI 66-year-old female with history of endometrial cancer status post hysterectomy in August by Dr. Nagy here with complaint of abdominal wound. Patient has history of liver transplant and so has anesthesia of the abdominal wall. She unfortunately sustained a burn from the heating pad on the right side of the abdominal wall and this has been gradually healing. Ever since her surgery along the superior aspect of her incision she had a small dehiscence and this has been gradually granulating in. Her primary thought this might be infected and so started her on Augmentin 2 days ago. Since, on the inferior margin of the incision. She states that this is soft, fluctuance and feels as though it' s about to pop. Patient notes surrounding erythema, but no drainage. PFSH Past Medical History Asthma: Yes Cancer: Yes Cardiovascular Problems: No Diabetes: No Endocrine: No Genitourinary: Yes (liver disease, transplant) Hepatitis: Yes (hep a, hep c) Hiatal Hernia: Yes Hypertension: Yes Immune Disorder: No Musculoskeletal: Yes (arthritis) Neurologic: No Psychiatric: No Reproductive: No Respiratory: Yes (spot on lung, asthma) Thyroid Disease: No Past Surgical History Abdominal Surgery: Yes (gallbladder) AICD: No Endocrine Surgery: Yes (LIVER TRANSPLANT) Joint Replacement: No Pacemaker: No Other Surgery: Yes (RUE SKIN GRAFT) Social History Alcohol Use: No Tobacco Use: No Substance Use: No Allergies-Medications (Allergen,Severity, Reaction): Coded Allergies: Latex (Verified Allergy, Severe, 10/07/16) Reported Meds & Prescriptions Reported Meds & Active Scripts Active Keflex (Cephalexin) 500 Mg Capsule 500 Mg PO TID 7 Days Bactrim DS (Sulfamethoxazole-Trimethoprim) 800-160 Mg Tab 1 Tab PO BID Reported Claritin (Loratadine) 10 Mg Cap 10 Mg PO DAILY Lipitor (Atorvastatin Calcium) 10 Mg Tab Unknown Dose PO HS Montelukast (Montelukast Sodium) 10 Mg Tab 10 Mg PO HS Gabapentin 100 Mg Cap 100 Mg PO BID Ranitidine (Ranitidine HCl) 150 Mg Tab 150 Mg PO HS Protonix (Pantoprazole Sodium) 40 Mg Tab 40 Mg PO DAILY Myfortic (Mycophenolate Sodium) 180 Mg Tab 360 Mg PO BID Metoprolol Tartrate 25 Mg Tab 25 Mg PO BID Flonase Nasal Colton (Fluticasone Nasal Colton) 50 Mcg/Act Colton 50 Mcg EACH NARE BID Neoral (Cyclosporine (Modified)) 25 Mg Cap 50 Mg PO BID Calcium 600 with Vitamin D (Calcium Carbonate-Cholecalciferol) 600-400 mg-Unit Tab 1 Tab PO BID Norvasc (Amlodipine Besylate) 5 Mg Tab 5 Mg PO DAILY Ventolin Hfa 18 GM Inh (Albuterol Sulfate) 90 Mcg/Act Aer 2 Puff INH Q4-6H PRN Review of Systems Except as stated in HPI: all other systems reviewed are Neg Physical Exam Narrative GENERAL: Well-appearing female in no acute distress SKIN: Focused skin assessment warm/dry. HEAD: Normocephalic. EYES: No scleral icterus. No injection or drainage. ENT: Mucous membranes pink and moist. CARDIOVASCULAR: Regular rate and rhythm. No murmur appreciated. RESPIRATORY: No accessory muscle use. Clear to auscultation. Breath sounds equal bilaterally. GASTROINTESTINAL: Multiple old surgical scars. Hysterectomy incision along the superior aspect has a 2 x 1 cm area of superficial dehiscence that is granulating in. This is not erythematous, no discharge. Along the inferior margin of the incision there is a 3 x 2 cm area of fluctuance surrounded by induration and firmness. There is no crepitus, no pain out of proportion. The remainder of the abdomen is soft. She does have a burn in the right upper quadrant, second degree that has blistered and is scabbed over and well healing. No surrounding erythema. MUSCULOSKELETAL: Normal gait NEUROLOGICAL: Awake and alert. Normal speech. PSYCHIATRIC: Appropriate mood and affect; insight and judgment normal. Data Data Last Documented VS Vital Signs Date Time Temp Pulse Resp B/P Pulse Ox O2 Delivery O2 Flow Rate FiO2 10/06/16 21:27 98.7 105 16 138/90 99 Room Air Orders Lidocai-Epi 1%-1:100,000 Inj (Xylocaine- (10/07/16 00:30) Wound Culture And Gram Stain (10/07/16 00:17) Sulfamet-Trimeth Ds 800-160 Mg (Bactrim (10/07/16 00:45) MDM Medical Decision Making Medical Screen Exam Complete: Yes Emergency Medical Condition: Yes Medical Record Reviewed: Yes Differential Diagnosis 66-year-old female with endometrial cancer status post hysterectomy approximately one month ago here with a wound to the inferior aspect of her surgical site. Exam is consistent with abscess with surrounding cellulitis. There is no evidence of necrotizing fasciitis in her abdominal examination is benign. My suspicion for intra-abdominal abscess is exceedingly low. Narrative Course I&D was performed, please see procedure note. Procedures Procedure Narrative INCISION AND DRAINAGE OF ABSCESS: The area was prepped and was sterilely draped. A subcutaneous wheal of 1 % Xylocaine with epinephrine with a total number 10 mL was used to anesthetize the area. The area was properly anesthetized. A number 11 blade scalpel was used to make a 1.5-cm incision across the area of the abscess. Cultures were obtained. The abscess was drained an irrigated with normal saline. Quarter inch iodoform packing was placed in the wound. Sterile dressing applied. Patient advised to have packing removed in two days. Diagnosis Primary Impression: Abdominal abscess Additional Impression: Abdominal wall cellulitis Referrals: Lily Nagy MD 2 days Additional Instructions: Follow-up with Dr. Nagy or return to the emergency department for packing removal in 2 days. Stop the Augmentin, change to Bactrim and Keflex as prescribed. Med/Other Pt SpecificInfo: Prescription(s) given, Med Stopped Scripts Oxycodone 5 Mg Tab5 Mg PO Q4H PRN (PAIN) #15 TAB Ref 0 Prov:Delma Wiley MD 10/07/16 Cephalexin (Keflex)500 Mg [id number] Mg PO TID 7 Days Ref 0 Prov:Delma Wiley MD 10/07/16 Sulfamethoxazole-Trimethoprim (Bactrim DS)800-160 Mg Tab1 Tab PO BID #14 TAB Ref 0 Prov:Delma Wiley MD 10/07/16 Disposition: 01 DISCHARGE HOME Condition: Stable Delma Wiley MD Oct 07, 2016 00:23
[2016-10-07] MEDS ORDERED: LIDOCAINE 1%/EPINEPHrine 1:100,000 SOLN 20 ML VIAL INFIL ONE (00:30)
[2016-10-07] MEDS ORDERED: OXYC-392 PO (00:39)
[2016-10-07] MEDS ORDERED: SULFAMETHOXAZOLE-TRIMETHOPRIM DS 800-160 MG TAB PO ONE (00:45)
[2016-10-07] MEDS ORDERED: CEPHALEXIN MONOHYDRATE 500 MG CAP PO ONE (00:45)
[2016-10-07 00:53] VITALS: BP 142/88; PULSE 99; RESP 18; O2SAT 99
== END 2016-10-07 00:53 | disposition home or self-care (01) ==
LOC: NEPE 21:25
DX: L02.211 Cutaneous abscess of abdominal wall (principal); L03.311 Cellulitis of abdominal wall; B96.89 Other specified bacterial agents as the cause of diseases classified elsewhere
CPT/HCPCS: 10061; 87070; 87185

== ENCOUNTER → 2016-12-25 | Day surgery (SDC) | payer OTHER, MEDICARE ==
[~2016-12-25] VITALS: Ht 165.1 cm; Wt 107.9 kg
[~2016-12-25] MED LIST changes: +ACETAMINOPHEN 1000 MG/100 ML 100 ML IV SCH; +BUPIVACAINE LIPOSOME PF 1.3% 20 ML VIAL INFIL ONE; -CALC1TAB87 PO; +CALC500T43 PO; +CENTCHW3 PO; -CEPH250C PO; +CHLORHEXIDINE GLUCONATE 2 % 1 PACK (2 CLOTHS) TOPICAL PRN; +FLUT1INH INH; +INSULIN HUMAN REGULAR 1,000 UNITS/10 ML VIAL SQ PRN; +LACTATED RINGER'S 1000 ML IV PRN; +LIDOCAINE HCL 1% PF 5 ML AMPULE OTHER ONE; +METOPROLOL TARTRATE 25 MG TAB PO PRN; +MIDAZOLAM HCL 2 MG/2 ML VIAL IV ONE; +ONDANSETRON HCL 4 MG/2 ML VIAL IV PUSH ONE; -OXYC-392 PO; +PHENYLEPH/NS 1000 MCG/10 ML SYR IV ONE; +POVIDONE IODINE 5% (ANTISEPSIS KIT) 4 APPLICATIONS EACH NARE PRN; +PROPOFOL 200 MG/20 ML AMP IV ONE; -RANI150T PO; +SODIUM CHLORID 0.9% 500 ML IV PRN; -WALKER WHEELS/F1 MIS
[2016-12-25 17:20] VITALS: BP 118/83; PULSE 81; RESP 16; TEMP 97.3; O2SAT 99
--- NOTE | 2017-01-22 11:45 | MP ---
cc: HEIDI KLEIN DATE OF SURGERY 12/25/2016 PREOPERATIVE DIAGNOSIS Chronic abdominal wall wound. POSTOPERATIVE DIAGNOSIS Chronic abdominal wall wound. PROCEDURE Incision and drainage of a chronic abdominal wall wound with debridement and placement of wound VAC SURGEON MD Beau COOK COLD MEAT Naseem Bruno MS3 ANESTHESIA General endotracheal. OPERATIVE FINDINGS The patient was found to have chronic sinus tract down to the anterior fascia. There was a 3 or 4 cm area of chronic granulation tissue at the base. There was induration around all of which was debrided. OPERATIVE PROCEDURE The patient was brought to the operating room and, after satisfactory general anesthesia had been obtained, the abdomen was prepped and draped in the usual sterile fashion. The previous midline incision was opened sharply and carried down through the subcutaneous tissue with cautery being used for hemostasis. The sinus tract was followed down to its base and wide debridement was accomplished with the cautery by resecting back to good tissue on all sides. Once the wound had been completely debrided of any indurated tissue and the infected tissue had been sent for permanent pathology and culture and sensitivity, the wound VAC sponge was cut to the appropriate shape and placed within the wound. It was then secured with the dressing and suction was applied successfully. The patient was then awakened and taken from the operating room, in satisfactory condition, having tolerated the procedure without problem. Estimated blood loss was less than 20 mL. The instrument count, sponge count, needle counts were reported as being correct x2 at the end of the procedure. Heidi Klein MD [facility] /11:30 AM /11:39 AM
== END | disposition home or self-care (01) ==
LOC: HSDC 12:30
PROVIDERS: ATTEND Surgery
DX: T81.32XA Disruption of internal operation (surgical) wound, not elsewhere classified, initial encounter (principal); N18.9 Chronic kidney disease, unspecified; Z94.4 Liver transplant status
CPT/HCPCS: 00300; 11042; 87015; 87070; 87102; 87116; 87176; 87205; 87206; 97607; C9290; J2250; J2370; J2405; J3010; J7120